=== PATIENT | female | born 2000 | race Caucasian/White ===

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

== ENCOUNTER 2019-07-09 11:49 | Emergency (ER) | payer OTHER, SELFPAY ==
--- OUTSIDE RECORDS SUMMARY | 2019-07-09 12:44 | XMS REPORT | Continuity of Care Document ---
:2000 Author Organization [facility] t Address [address] [place] [address] Care Team Providers Name Role Phone Sierra Tan Attending Clinician ZARA Attending Clinician Unavailable Problems Condition Condition Condition Status Onset Resolution Last Treating Co mments Source Name Details Category Date Date Treatment Clinician Date History of History of Problem Resolve [facility] asthma asthma HL7.CCDAR2 d [facility] of [place] Phys[facility] ans Breakthrou Breakthrou Problem Active U nivers gh gh HL7.CCDAR2 ity of bleeding bleeding [place] on on Physic i control control ans pills pills Allergies, Adverse Reactions, Alerts This patient has no known allergies or adverse reactions. Social History Smoking Status Start Date Stop Date Source Never smoker [facility] Physicians Medications Ordered Filled Start Stop Current Ordering Indication Dosage Frequency Signature Comments Components Source Medication Medication Date Date Medication? Clinician (SIG) Name Name Desogestrel Desogestrel Yes HOPE QD TAKE 1 [facility] -Ethinyl -Ethinyl 8-08 ZARA Clemons TABLET ity of Estradiol Estradiol 00:00: DAILY [place] 0.15-30 0.15-30 00 DIRECTED. Phys ici MG-MCG Oral MG-MCG Oral a ns Tablet Tablet Vital Signs Vital Name Observation Time Observation Value Comments Source BP Systolic 2017-09-13 113 mm[Hg] Location: [facility] 13:37:00 Position: [place] Physician s Sitting BP Diastolic 2017-09-13 68 mm[Hg] Location: [facility] 13:37:00 Position: [place] Physician s Sitting Height 2017-09-13 67 [in_us] [facility] 13:37:00 [place] Physician s Weight 2017-09-13 184 [lb_av] [facility] 13:37:00 [place] Physician s Body Mass Index 2017-09-13 28.82 kg/m2 University o f Calculated 13:37:00 [place] Physician s Heart Rate 2017-09-13 90 /min [facility] 13:37:00 [place] Physician s Procedures This patient has no known procedures. 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 [id number] REGIONAL [id number] MATERNAL [id number] & CHILD 107 [facility] 2018-10-23 2018-10-23 Routine FLORIAN Solis [id number] 11:04:47 11:27:08 Roshunda R GLOVE MAKER [id number] Visit REGIONAL [id number] MATERNAL [id number] & CHILD 107 [facility] 2018-10-09 2018-10-09 Routine FLORIAN Solis [id number] 10:02:18 10:42:22 Roshunda R GLOVE MAKER [id number] Visit REGIONAL [id number] MATERNAL [id number] & CHILD 107 [facility] 2018-09-24 2018-09-24 Routine FLORIAN Solis [id number] 09:30:30 14:04:21 Roshunda R GLOVE MAKER [id number] Visit REGIONAL [id number] MATERNAL [id number] & CHILD 107 [facility] 2017-09-13 2017-09-13 REGAN [facility] [id number] [facility] 14:00:00 14:00:00 t; HOPE ZUÑIGA, [place] ity of Deonte ARNETT M.D. Physici ans Results This patient has no known results.
[2019-07-09 13:05] LABS: Absolute Lymphocytes (CBC) 2.1 K/uL (0.7-4.9); Basophils % 0.4 % (0-1.3); Hematocrit 38.9 % (36.0-45.0); Lymphocytes % 36.1 % (15.3-44.8); MPV 8.5 fL (7.6-11.3); RBC Red Blood Cell Count 5.25 M/uL (3.86-4.86)
[2019-07-09 13:26] LABS: BUN Blood Urea Nitrogen 10 mg/dL (7-18); Bicarbonate 26 mmol/L (21-32); Glucose Level 108 mg/dL (74-106); Sodium Level 139 mmol/L (136-145)
--- NOTE | 2019-07-09 14:31 | EDPHYS ---
Physician Documentation [facility] Name: Nicolasa Mas Age: 19 yrs Sex: Female : 2000 Arrival Date: 07/09/2019 Time: 11:55 Bed 26 Private MD: ED Physician Jj Fernandez HPI: 07/08 12:27 This 19 yrs old Female presents to ER via Ambulatory with complaints of mh7 Vaginal Bleeding.. 12:27 The patient presents with vaginal bleeding that is heavy. Onset: The symptoms/episode mh7 began/occurred 3 day(s) ago. Modifying factors: The symptoms are alleviated by nothing, the symptoms are aggravated by nothing. Associated signs and symptoms: Pertinent negatives: constipation, cramping, diarrhea, dyspareunia, dysuria, fever, hematuria, nausea, urinary frequency, vaginal discharge, vomiting. Severity of symptoms: At their worst the symptoms were moderate, last night, in the emergency department the symptoms have improved, moderately. 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 - Social history:: Smoking status: Patient reports the use of cigarette tobacco products, smokes one pack cigarettes per day. ROS: 12:27 Constitutional: Negative for fever, chills, and weight loss, Eyes: Negative for injury, mh7 pain, redness, and discharge, ENT: Negative for injury, pain, and discharge, Neck: Negative for injury, pain, and swelling, Cardiovascular: Negative for chest pain, palpitations, and edema, Respiratory: Negative for shortness of breath, cough, wheezing, and pleuritic chest pain, Abdomen/GI: Negative for abdominal pain, nausea, vomiting, diarrhea, and constipation, Back: Negative for injury and pain, MS/Extremity: Negative for injury and deformity, Skin: Negative for injury, rash, and discoloration, Neuro: Negative for headache, weakness, numbness, tingling, and seizure, Psych: Negative for depression, anxiety, suicide ideation, homicidal ideation, and hallucinations, Allergy/Immunology: Negative for hives, rash, and allergies, Endocrine: Negative for neck swelling, polydipsia, polyuria, polyphagia, and marked weight changes, Hematologic/Lymphatic: Negative for swollen nodes, abnormal bleeding, and unusual bruising. Exam: 12:27 Constitutional: This is a well developed, well nourished patient who is awake, alert, mh7 and in no acute distress. Head/Face: Normocephalic, atraumatic. Eyes: Pupils equal round and reactive to light, extra-ocular motions intact. Lids and lashes normal. Conjunctiva and sclera are non-icteric and not injected. Cornea within normal limits. Periorbital areas with no swelling, redness, or edema. Neck: Trachea midline, no thyromegaly or masses palpated, and no cervical lymphadenopathy. Supple, full range of motion without nuchal rigidity, or vertebral point tenderness. No Meningismus. Chest/axilla: Normal chest wall appearance and motion. Nontender with no deformity. No lesions are appreciated. Cardiovascular: Regular rate and rhythm with a normal S1 and S2. No gallops, murmurs, or rubs. Normal PMI, no JVD. No pulse deficits. Respiratory: Lungs have equal breath sounds bilaterally, clear to auscultation and percussion. No rales, rhonchi or wheezes noted. No increased work of breathing, no retractions or nasal flaring. Abdomen/GI: Soft, non-tender, with normal bowel sounds. No distension or tympany. No guarding or rebound. No evidence of tenderness throughout. Back: No spinal tenderness. No costovertebral tenderness. Full range of motion. Skin: Warm, dry with normal turgor. Normal color with no rashes, no lesions, and no evidence of cellulitis. MS/ Extremity: Pulses equal, no cyanosis. Neurovascular intact. Full, normal range of motion. Neuro: Awake and alert, GCS 15, oriented to person, place, time, and situation. Cranial nerves II-XII grossly intact. Motor strength 5/5 in all extremities. Sensory grossly intact. Cerebellar exam normal. Normal gait. Psych: Awake, alert, with orientation to person, place and time. Behavior, mood, and affect are within normal limits. 19:51 : CVA tenderness, is absent, Pelvic Exam: The exam is refused by the [facility] patient/guardian. The risks and consequences are understood by the patient, Bladder: is normal. Vital Signs: 12:07 BP 133 / 85; Pulse 98; Resp 16; Temp 98.3; Pulse Ox 100% on R/A; Weight 84.37 kg; ph Height 5 ft. 7 in. (170.18 cm); 14:40 BP 112 / 67; Pulse 80; Resp 17; Pulse Ox 99% ; Pain 0/10; ll1 12:07 Body Mass Index 29.13 (84.37 kg, 170.18 cm) ph MDM: 12:25 Patient medically screened. [facility] 14:29 Differential diagnosis: dysmenorrhea, ectopic , menometrorrhagia, menorrhea, [facility] postcoital bleeding, ruptured ectopic , urinary tract infection. Data reviewed: vital signs, nurses notes, lab test result(s), CBC, electrolytes, urinalysis. Counseling: I had a detailed discussion with the patient and/or guardian regarding: the historical points, exam findings, and any diagnostic results supporting the discharge/admit diagnosis, lab results. 07/08 12:27 Order name: Abo/rh Typing; Complete Time: 13:33 [facility] 07/08 12:27 Order name: Basic Metabolic Panel; Complete Time: 13:33 [facility] 07/08 12:27 Order name: CBC with Diff; Complete Time: 13:33 [facility] 07/08 12:27 Order name: IV Saline Lock; Complete Time: 12:54 [facility] 07/08 13:26 Order name: Urine Dipstick--Ancillary (enter results) 07/08 13:26 Order name: Urine --Ancillary (enter results) 07/08 12:27 Order name: Labs collected and sent; Complete Time: 12:54 [facility] 07/08 12:27 Order name: NPO; Complete Time: 12:54 [facility] 07/08 12:27 Order name: Urine Dipstick-Ancillary (obtain specimen); Complete Time: 13:13 [facility] 07/08 12:27 Order name: Urine Test (obtain specimen); Complete Time: 13:13 [facility] Administered Medications: No medications were administered Disposition: 07/09/19 14:31 Discharged to Home. Impression: Vaginal Bleeding. - Condition is Stable. - Discharge Instructions: Metrorrhagia, [id number]. - Medication Reconciliation Form, Thank You Letter, Antibiotic Education, Prescription Opioid Use form. - Follow up: Eliu Gray MD; When: 1 - 2 days; Reason: Worsening of condition, Recheck today's complaints. - Problem is new. - Symptoms have improved. Signatures: Dispatcher [employer] Svitlana Ivy, RN RN Luis E Cruz RN RN ll1 Jj Fernandez MD MD mh7 Corrections: (The following items were deleted from the chart) 14:42 14:31 07/09/2019 14:31 Discharged to Home. Impression: Vaginal Bleeding. Condition is ll1 Stable. Forms are Medication Reconciliation Form, Thank You Letter, Antibiotic Education, Prescription Opioid Use. Follow up: Eliu Gray; When: 1 - 2 days; Reason: Worsening of condition, Recheck today's complaints. Problem is new. Symptoms have improved. mh7
--- NOTE | 2019-07-09 14:31 | ER ---
Nurse's Notes [facility] Name: Nicolasa Mas Age: 19 yrs Sex: Female : 2000 Arrival Date: 07/09/2019 Time: 11:55 Bed 26 Private MD: Diagnosis: Vaginal Bleeding Presentation: 07/08 12:07 Chief complaint: Patient states: LMP was 2 weeks ago, 4 days ago started having light ph spotting, vaginal bleeding became heavy on Monday, also c/o cramping, denies dizziness, weakness, or SOB, states that periods are usually regular. Coronavirus screen: Patient denies a cough. Patient denies shortness of breath or difficulty breathing. Patient denies measured and/or subjective temperature greater than 100.4F prior to today's visit. Patient denies travel on a cruise ship or to a country the [facility] currently lists as an affected area. Patient denies contact with known and/or suspected case of COVID-19. Ebola Screen: No symptoms or risks identified at this time. Initial Sepsis Screen: Does the patient meet any 2 criteria? No. Patient's initial sepsis screen is negative. Does the patient have a suspected source of infection? No. Patient's initial sepsis screen is negative. Risk Assessment: Do you want to hurt yourself or someone else? Patient reports no desire to harm self or others. Onset of symptoms was July 09, 2019. 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 - Social history:: Smoking status: Patient reports the use of cigarette tobacco products, smokes one pack cigarettes per day. Screenin:56 Abuse screen: Denies threats or abuse. Nutritional screening: No deficits noted. ll1 Tuberculosis screening: No symptoms or risk factors identified. Fall Risk IV access (20 points). Total Mauricio Fall Scale indicates No Risk (0-24 pts). Assessment: 12:35 General: Appears in no apparent distress. Behavior is calm, cooperative, appropriate ll1 for age. Pain: Complains of pain in pelvic Quality of pain is described as crampy. Neuro: No deficits noted. Cardiovascular: No deficits noted. Respiratory: No deficits noted. : Reports vaginal bleeding that is moderate flow, irregular. 13:35 Reassessment: Patient appears in no apparent distress at this time. No changes from ll1 previously documented assessment. Patient and/or family updated on plan of care and expected duration. Pain level reassessed. Patient is alert, oriented x 3, equal unlabored respirations, skin warm/dry/pink. Vital Signs: 12:07 BP 133 / 85; Pulse 98; Resp 16; Temp 98.3; Pulse Ox 100% on R/A; Weight 84.37 kg; ph Height 5 ft. 7 in. (170.18 cm); 14:40 BP 112 / 67; Pulse 80; Resp 17; Pulse Ox 99% ; Pain 0/10; ll1 12:07 Body Mass Index 29.13 (84.37 kg, 170.18 cm) ph ED Course: 11:55 Patient arrived in ED. fj1 12:04 Luis E Cruz, DANY is Primary Nurse. ll1 12:10 Triage completed. ph 12:10 Arm band placed on Patient placed in an exam room. ph 12:18 Jj Fernandez MD is Attending Physician. 7 12:40 Initial lab(s) drawn, by nh, sent to lab. T\T\S collected, blood band applied to patient. jp3 Inserted saline lock: 20 gauge in right antecubital area, using aseptic technique. Blood collected. Patient maintains SpO2 saturation greater than 95% on room air. 12:53 Bed in low position. Call light in reach. Side rails up X 1. Verbal reassurance given. jp3 Pulse ox on. NIBP on. 12:54 Diet: Patient is NPO. jp3 14:30 Eliu Gray MD is Referral Physician. mh7 14:40 No provider procedures requiring assistance completed. IV discontinued, intact, ll1 bleeding controlled, No redness/swelling at site. Pressure dressing applied. Administered Medications: No medications were administered Outcome: 14:31 Discharge ordered by . mh7 14:42 Patient left the ED. ll1 14:42 Discharged to home ambulatory. ll1 14:42 Condition: stable 14:42 Discharge instructions given to patient, Instructed on discharge instructions, follow up and referral plans. Demonstrated understanding of instructions, follow-up care. Signatures: Svitlana Palmer RN RN ph Vinnie Yung jp3 Jorge Sykes fj1 Luis E Cruz RN RN ll1 Jj Fernandez MD MD 7
[2019-07-09 14:47] VITALS: BP 133/85; TEMP 98.3; O2SAT 100
[2019-07-09 20:47] LABS: Urine Blood 1+ (NEG); Urine Glucose NEGATIVE (NEG); Urine Protein NEGATIVE (NEG); Urine Specific Gravity >1.030 (1.005-1.030)
== END 2019-07-09 14:42 | disposition home or self-care (01) ==
LOC: ER 11:49
DX: N93.9 Abnormal uterine and vaginal bleeding, unspecified (principal); F17.210 Nicotine dependence, cigarettes, uncomplicated
CPT/HCPCS: 36415; 80048; 81003; 81025; 85025; 86900; 86901; 99284

== ENCOUNTER 2019-07-27 19:19 | Emergency (ER) | payer SELFPAY ==
--- OUTSIDE RECORDS SUMMARY | 2019-07-27 19:21 | XMS REPORT | Continuity of Care Document ---
:2000 Author Organization [facility] t Address [address] [place] [address] Care Team Providers Name Role Phone Sierra [...] Start Date Stop Date Source Never smoker [facility] Physicians Medications Ordered Filled Start Stop Current Ordering Indication Dosage Frequency Signature Comments Components Source Medication Medication Date Date Medication? Clinician (SIG) Name Name Desogestrel Desogestrel Yes HOPE QD TAKE 1 [facility] -Ethinyl -Ethinyl 08 ZARA Clemons TABLET ity of Estradiol Estradiol 00:00: DAILY [place] 0.15-30 0.15-30 00 DIRECTED. Phys ici MG-MCG Oral MG-MCG Oral a ns Tablet Tablet Vital Signs Vital Name Observation Time Observation Value Comments Source BP Systolic 2017-09-13 113 mm[Hg] Location: LUE; [facility] of 13:37:00 Position: [place] Physician s Sitting BP Diastolic 2017-09-13 68 mm[Hg] Location: [facility] 13:37:00 Position: [place] Physician s Sitting Height 2017-09-13 67 [in_us] University 13:37:00 [place] Physician s Weight 2017-09-13 184 [lb_av] University 13:37:00 [place] Physician s Body Mass Index 2017-09-13 28.82 kg/m2 University o f Calculated 13:37:00 [place] Physician s Heart Rate 2017-09-13 90 /min [facility] 13:37:00 [place] Physician s Procedures This patient has no known procedures. Encounters Start End Encounter Admission Attending Care Care Encounter Source Date/Time Date/Time Type Type Clinicians Facility Department ID 2019-04-04 2019-04-04 Telephone [facility] [id number] 00:00:00 00:00:00 Roshunda R MIRROR PAINTER [id number] REGIONAL [id number] MATERNAL [id number] & CHILD 107 [facility] 2018-10-23 2018-10-23 Routine [facility] [id number] 11:04:47 11:27:08 Roshunda R MIRROR PAINTER [id number] Visit REGIONAL [id number] MATERNAL [id number] & CHILD 107 [facility] 2018-10-09 2018-10-09 Routine [facility] [id number] 10:02:18 10:42:22 Roshunda R MIRROR PAINTER [id number] Visit REGIONAL [id number] MATERNAL [id number] & CHILD 107 [facility] 2018-09-24 2018-09-24 Routine [facility] [id number] 09:30:30 14:04:21 Roshunda R MIRROR PAINTER [id number] Visit REGIONAL [id number] MATERNAL [id number] & CHILD 107 [facility] 2017-09-13 2017-09-13 AppointREGAN Bauer's [id number] Univers 14:00:00 14:00:00 t; HOPE ZUÑIGA, Elizabeth ity of Deonte ARNETT M.D. Physici ans Results This patient has no known results.
[2019-07-27] MEDS ORDERED: HYDROCODONE/APAP 5/325 MG TAB ONE ×2 (20:37→23:19)
[2019-07-27] MEDS ORDERED: LIDOCAINE JELLY 2%- 5 ML TUBE ONE (21:37)
[2019-07-27] MEDS ORDERED: LIDOCAINE 1% MPF 5 ML VIAL ONE (22:06)
[2019-07-27] MEDS ORDERED: BUPIVACAINE 0.5% PF 10 ML VIAL ONE (22:06)
--- NOTE | 2019-07-27 23:10 | ER ---
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 Coronavirus screen: Proceed with normal triage. Patient denies a cough. Patient denies shortness of breath or difficulty breathing. Patient denies measured and/or subjective temperature greater than 100.4F prior to today's visit. Patient denies travel on a cruise ship or to a country the [facility] currently lists as an affected area. Patient denies contact with known and/or suspected case of COVID-19. Ebola Screen: Patient denies travel to an Ebola-affected area in the 21 days before illness onset. Initial Sepsis Screen: Does the patient meet any 2 criteria? HR > 90 bpm. No. Patient's initial sepsis screen is negative. Onset of symptoms was July 27, 2019. 19:30 Method Of Arrival: Ambulatory ll1 19:30 Acuity: IAN 4 ll1 20:00 Initial Sepsis Screen: Does the patient have a suspected source of infection? No. Patient's initial sepsis screen is negative. Risk Assessment: Do you want to hurt yourself or someone else? Patient reports no desire to harm self or others. Triage Assessment: 20:00 Injury Description: Deformity sustained to left index fingernail. 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 - Social history:: Smoking status: Patient denies any tobacco usage or history of. Smoking status: Patient reports the use of cigarette tobacco products, smokes one pack cigarettes per day. Patient uses alcohol, only on a social basis. Patient/guardian denies using street drugs. Screenin:00 Abuse screen: Denies threats or abuse. Denies injuries from another. Nutritional screening: No deficits noted. Tuberculosis screening: No symptoms or risk factors identified. Fall Risk None identified. Assessment: 19:45 General: Appears in no apparent distress. Behavior is calm, cooperative, appropriate wh for age. Pain: Complains of pain in left index fingernail. Neuro: Level of Consciousness is awake, alert, obeys commands, Oriented to person, place, time, situation, Appropriate for age. Cardiovascular: Capillary refill < 3 seconds. Respiratory: Airway is patent Respiratory effort is even, unlabored, Respiratory pattern is regular, symmetrical. GI: Abdomen is flat, non-distended. : No signs and/or symptoms were reported regarding the genitourinary system. EENT: No signs and/or symptoms were reported regarding the EENT system. Derm: Skin is intact, is healthy with good turgor, Skin is pink, warm \T\ dry. normal. Musculoskeletal: Circulation, motion, and sensation intact. 20:30 Reassessment: Acetone was provided by family, nail was placed on gauze soaked with acetone. 20:40 Reassessment: Patient appears in no apparent distress at this time. No changes from previously documented assessment. Patient and/or family updated on plan of care and expected duration. Pain level reassessed. Patient is alert, oriented x 3, equal unlabored respirations, skin warm/dry/pink. 21:30 Reassessment: Patient appears in no apparent distress at this time. Patient and/or vc family updated on plan of care and expected duration. Pain level reassessed. Patient is alert, oriented x 3, equal unlabored respirations, skin warm/dry/pink. 22:43 Reassessment: Patient appears in no apparent distress at this time. Patient and/or vc family updated on plan of care and expected duration. Pain level reassessed. Patient is alert, oriented x 3, equal unlabored respirations, skin warm/dry/pink. Patient states symptoms have improved. Vital Signs: 19:30 BP 135 / 88; Pulse 93; Resp 16; Temp 97.7; Pulse Ox 100% ; Pain 3/10; ll1 20:45 BP 115 / 81; Pulse 86; Resp 18; Pulse Ox 99% on R/A; ED Course: 19:22 Patient arrived in ED. es 19:26 Arm band placed on. sg 19:32 Triage completed. ll1 19:33 Mehrdad Bartlett NP is PHCP. pm1 19:33 Kuldip Ortega MD is Attending Physician. pm1 19:33 Arm band placed on Patient placed in an exam room, on a stretcher. ll1 20:00 Patient has correct armband on for positive identification. Bed in low position. Call light in reach. Side rails up X 1. Pulse ox on. NIBP on. 20:11 Noah Maxwell is Primary Nurse. 23:25 suturing 2nd digit left hand fingernail back on. Patient did not have IV access during vc this emergency room visit. Administered Medications: 19:50 Drug: Lidocaine Gel 2 % 1 ea Volume: 15 ml; Route: Mucous Membrane; vc 20:31 Drug: [place] 5 mg-325 mg 1 tabs Route: PO; 22:44 Follow up: Response: No adverse reaction vc 20:32 Not Given (Physician Discretion; Pt just had DTAP): Tetanus-Diphtheria Toxoid Adult 0.5 wh ml IM once 22:20 Drug: Lidocaine (1 %) 5 ml Volume: 5 ml; Route: Infiltration; vc 22:20 Drug: Marcaine (0.5 %) 5 ml Volume: 10 ml; Route: Infiltration; vc 23:25 Drug: [place] 5 mg-325 mg 1 tabs Route: PO; vc 23:25 Follow up: Response: No adverse reaction; Medication administered at discharge. vc Outcome: 23:09 Discharge ordered by . pm1 23:26 Discharged to home ambulatory, with friend. vc 23:26 Condition: good 23:26 Discharge instructions given to patient, Instructed on discharge instructions, follow up and referral plans. Demonstrated understanding of instructions, follow-up care, Prescriptions given X 2. 23:27 Patient left the ED. vc Signatures: Hiren Davis RN RN Brittany Villar Patrick, NP BOX PACKER pm1 Noah Maxwell Danielle Restrepo RN RN Luis E Cruz RN RN [facility]
--- NOTE | 2019-07-27 23:10 | EDPHYS ---
Physician Documentation [facility] Name: Nicolasa Mas Age: 19 yrs Sex: Female : 2000 Arrival Date: 07/27/2019 Time: 19:22 Bed 15 Private MD: ED Physician Kuldip Ortega HPI: 07/26 20:23 This 19 yrs old Female presents to ER via Ambulatory with complaints of pm1 Finger Injury. 20:23 The patient or guardian reports pain. The complaints affect the left index fingernail. pm1 Context: The problem was sustained at home, resulted from bent nail back due to fake nail. Onset: The symptoms/episode began/occurred just prior to arrival. Modifying factors: The symptoms are alleviated by nothing, the symptoms are aggravated by. Associated signs and symptoms: Pertinent negatives: cyanosis distally, decreased sensation distally, numbness distally, tingling distally. Severity of symptoms: in the emergency department the symptoms are unchanged. The patient has not experienced similar symptoms in the past. 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 - Social history:: Smoking status: Patient denies any tobacco usage or history of. Smoking status: Patient reports the use of cigarette tobacco products, smokes one pack cigarettes per day. Patient uses alcohol, only on a social basis. Patient/guardian denies using street drugs. ROS: 20:59 Constitutional: Negative for fever, chills, and weight loss. pm1 20:59 Neuro: Negative for headache, weakness, numbness, tingling, and seizure. 20:59 MS/extremity: Positive for laceration, pain, of the left index fingernail, Negative for decreased range of motion, deformity. 20:59 Skin: Positive for laceration(s), of the left index fingernail, Negative for avulsion. 20:59 All other systems are negative. Exam: 20:59 Constitutional: This is a well developed, well nourished patient who is awake, alert, pm1 and in no acute distress. Head/Face: Normocephalic, atraumatic. 20:59 Cardiovascular: Exam negative for acute changes, Rate: normal, Rhythm: regular, Pulses: no pulse deficits are appreciated. 20:59 Respiratory: Exam negative for acute changes, respiratory distress, shortness of breath. 20:59 Musculoskeletal/extremity: Extremities: grossly normal except: noted in the left index fingernail: nailbed laceration. Nail root intact in nail groove, the left hand Sensation intact. 20:59 Skin: injury, laceration(s), the wound is approximately 1 cm(s), of the left index fingernail, that can be described as clean, no foreign body, nail bed laceration. Hard artificial nail attached to acrylic nail attached to nail present. Vital Signs: 19:30 BP 135 / 88; Pulse 93; Resp 16; Temp 97.7; Pulse Ox 100% ; Pain 3/10; ll1 20:45 BP 115 / 81; Pulse 86; Resp 18; Pulse Ox 99% on R/A; wh Laceration: 23:03 Wound Repair of 1cm ( 0.4in ) subcutaneous laceration to left index fingernail. nail pm1 bed laceration. Distal neuro/vascular/tendon intact. Anesthesia: Digital block administered with 2 mls of 1% lidocaine. Wound prep: Extensive cleansing with hibiclenz by me, Wound irrigation with saline by me, Wound explored extensively, Copious irrigation. Skin closed with 1 4-0 Prolene using figure 8 suture applied to keep root of nail in the nail fold. Dressed with Neosporin, finger splint. Patient tolerated well. MDM: 19:33 Patient medically screened. pm1 20:46 ED course: No acetone present in the ER to remove the nail. Pending friend drove home pm1 to pick it up. Informed patient that the fake nail needs to be removed to evaluate if any treatment needs to be done on the nail or nailbed. 23:08 Data reviewed: vital signs. Data interpreted: Pulse oximetry: on room air is 99 %. pm1 Interpretation: normal. Counseling: I had a detailed discussion with the patient and/or guardian regarding: the historical points, exam findings, and any diagnostic results supporting the discharge/admit diagnosis, the need for outpatient follow up, to return to the emergency department if symptoms worsen or persist or if there are any questions or concerns that arise at home. Administered Medications: 19:50 Drug: Lidocaine Gel 2 % 1 ea Volume: 15 ml; Route: Mucous Membrane; vc 20:31 Drug: [place] 5 mg-325 mg 1 tabs Route: PO; wh 22:44 Follow up: Response: No adverse reaction vc 20:32 Not Given (Physician Discretion; Pt just had DTAP): Tetanus-Diphtheria Toxoid Adult 0.5 wh ml IM once 22:20 Drug: Lidocaine (1 %) 5 ml Volume: 5 ml; Route: Infiltration; vc 22:20 Drug: Marcaine (0.5 %) 5 ml Volume: 10 ml; Route: Infiltration; vc 23:25 Drug: [place] 5 mg-325 mg 1 tabs Route: PO; vc 23:25 Follow up: Response: No adverse reaction; Medication administered at discharge. vc Disposition: 07/27 04:23 Co-signature as Attending Physician, Kuldip Ortega MD I agree with the assessment and lien plan of care. Disposition: 07/27/19 23:09 Discharged to Home. Impression: Laceration without foreign body of left index finger with damage to nail - nail bed laceration. - Condition is Stable. - Discharge Instructions: Laceration Care, Adult. - Prescriptions for Tylenol- Codeine #3 300-30 mg Oral Tablet - take 2 tablets by ORAL route every 6 hours As needed; 20 tablet. Keflex 500 mg Oral Capsule - take 1 capsule by ORAL route every 8 hours for 10 days; 30 capsule. - Medication Reconciliation Form, Thank You Letter, Antibiotic Education, Prescription Opioid Use, Work release form form. - Follow up: Emergency Department; When: As needed; Reason: Worsening of condition. Follow up: Private Physician; When: 10 - 14 days; Reason: Recheck today's complaints, Continuance of care, Staple/Suture removal, Re-evaluation by your physician. - Problem is new. - Symptoms have improved. Signatures: Hiren Davis RN RN sg Anderson, Corey, MD MD cha Marinas, Patrick, MADHAV DIRECTOR MONEY pm1 Noah Maxwell Vanessa, RN RN vc Lewis, Lynsay, RN RN ll1 Corrections: (The following items were deleted from the chart) 07/26 23:27 23:09 07/27/2019 23:09 Discharged to Home. Impression: Laceration without foreign body vc of left index finger with damage to nail - nail bed laceration. Condition is Stable. Forms are Work release form, Medication Reconciliation Form, Thank You Letter, Antibiotic Education, Prescription Opioid Use. Follow up: Emergency Department; When: As needed; Reason: Worsening of condition. Follow up: Private Physician; When: 10 - 14 days; Reason: Recheck today's complaints, Continuance of care, Staple/Suture removal, Re-evaluation by your physician. Problem is new. Symptoms have improved. pm1
[2019-07-27 23:40] VITALS: BP 115/81; O2SAT 99
[2019-07-27 23:42] VITALS: TEMP 97.7
== END 2019-07-27 23:27 | disposition home or self-care (01) ==
LOC: ER 19:19
PROC: 0JQK0ZZ Repair Left Hand Subcutaneous Tissue and Fascia, Open Approach (ICD-10-PCS; principal; 2019-07-27)
DX: S61.311A Laceration without foreign body of left index finger with damage to nail, initial encounter (principal); W45.8XXA Other foreign body or object entering through skin, initial encounter; Y93.89 Activity, other specified; Y92.009 Unspecified place in unspecified non-institutional (private) residence as the place of occurrence of the external cause; F17.210 Nicotine dependence, cigarettes, uncomplicated
CPT/HCPCS: 99283

== ENCOUNTER 2023-07-21 01:13 | Emergency (ER) | payer OTHER, SELFPAY ==
--- OUTSIDE RECORDS SUMMARY | 2023-07-21 01:18 | XMS REPORT | Continuity of Care Document ---
Author Name Unknown Address [address] [facility]. [address] [place] [address] [facility] Address [address] [facility] [address] [place] [address] Care Team Providers Care Derrick Boat Runner Name Role Phone Cielo Loza Primary Care Physicia n JEN JIMÉNEZ Attending Clinician Unavaila OFELIA Grimes Attending Clinician Unavailable OFELIA HOFFMAN Attending Clinician Unavailable Provider, Chilango Temp Attending Clinician Veronica vailable Cielo Loza Attending Clinician + CIELO MCDONALD Attending Clinician Unavail able Jen Jiménez CNM Attending Clinician [phone] QUINCY DAIGLE Attending Clinician Unavailable QUINCY DAIGLE Attending Clinician Unavailable Ultrasound, [facility] Attending Clinician UnavailQuincy Bowers MD Attending Clinician [phone] Doctor Unassigned, [place] Attending Clinician U joailwillie Nurse, [facility] Obgyn Attending Clini alison Unavailable Gabi TABLE WORKER, Arlene Boyd Attending Clinician [phone] ARLENE ASHLEY Attending Clinician Unavailabl elias Zhou TABLE WORKER, Balbir Esquivel Attending Clinician [phone] BALBIR ZHOU Attending Clinician Unavailab alec Mcdonald MD, Freeman Mendoza Attending Clinician + [phone] Yony Song MD Attending Clinician [phone] Camden Pollock Attending Clinician [phone] Hamilton Dalia MCFARLAND Attending Clinician LATASHA CONTRERAS Attending Clinician Unavailable CHALINO DENTON Attending Clinician Unavail able HOPE ZUÑIGA M.D. Attending Clinician Unavail willie Mcdonald MD, Freeman Mendoza Admitting Clinician + [phone] Payers Payer Name Policy Type Policy Number Effective Date Expirati on Date Source [employer] MEDICAID [id number] 2020 00:00:00 [place] [id number] 2020 00:00:00 Problems Condition Name Condition Details Condition Category Status Onset Date Resolution Date Last Treatment Date Treating Clinician Comments Source Asthma affecting in second trimester Asthma affecting in second trimester Disease Active 07-11 00:00: 00 [facility] Vapes nicotine containing substance Vapes nicotine containing substance Disease Active 04-12 00:00: 00 [facility] History of seizures as a child History of seizures as a child Disease Active 04-12 00:00: 00 Overview: Formattin g of this note might be different from the original. Febrile as child [facility] Other general counseling and advice for contracept duke management Other general counseling and advice for contracept duke management Disease Active 2023-0 1-31 00:00: 00 [facility] Obesity (BMI 30-39.9) Obesity (BMI 30-39.9) Disease Active 1-31 00:00: 00 [facility] Obesity affecting Obesity affecting Disease Active 1-31 00:00: 00 [facility] depression depression Disease Active 2020-02 0-11 00:00: 00 [facility] Anemia, Anemia, Disease Active 8-31 00:00: 00 [facility] History of asthma History of asthma Disease Active 530 00:00: 00 [facility] History of depression History of depression Disease Active 07-05 00:00: 00 [facility] Maternal varicella, non-immune Maternal varicella, non-immune Disease Active 530 00:00: 00 [facility] related nausea, antepartum related nausea, antepartum Disease Active 07-05 00:00: 00 [facility] Supervisio n of high risk , antepartum Supervisio n of high risk , antepartum Disease Active 5-28 00:00: 00 [facility] Asperger syndrome Asperger syndrome Disease Active 3-13 00:00: 00 [facility] Breakthrou gh bleeding on control pills Breakthrou gh bleeding on control pills Problem [id number] Active [facility] Allergies, Adverse Reactions, Alerts Allergy Name Allergy Type Status Severity Reaction(s) Onset Date Inactive Date Treating Clinician Comments Source NO KNOWN ALLERGIE S Drug Class Active [facility] Social History Social Habit Start Date Stop Date Quantity Comments Source ASSERTION 2023-03-24 00:00:00 [facility] Cigarettes smoked current (pack per day) - Reported 2023-07-12 00:00:00 2023-07-12 00:00:00 [facility] Cigarette pack-years 2023-07-12 00:00:00 2023-07-12 00:00:00 [facility] Tobacco use and exposure 2023-07-12 00:00:00 2023-07-12 00:00:00 Smokeless tobacco non-user [facility] Alcoholic beverage intake 2023-07-12 00:00:00 2023-07-12 00:00:00 Current non-drinker of alcohol (finding) [facility] Alcohol intake 2023-06-07 00:00:00 2023-06-07 00:00:00 Current non-drinker of alcohol (finding) [facility] History of Social function 2023-04-12 00:00:00 2023-04-12 00:00:00 [facility] Exposure to SARS-CoV-2 (event) 2022-02-26 00:00:00 2022-03-08 13:13:00 Not sure [facility] Tobacco Comment 2022-03-08 00:00:00 2022-03-08 00:00:00 patient vapes [facility] History of tobacco use 2018-04-08 00:00:00 Cigarette Smoker [facility] Sex assigned at 2000 00:00:00 2000 00:00:00 [facility] Smoking Status Start Date Stop Date Source Never smoker [facility] Ex-smoker 2023-07-12 00:00:00 2023-07-12 00:00:00 [facility] Smokes tobacco daily 2022-03-08 00:00:00 [facility] Medications Ordered Medication Name Filled Medication Name Start Date Stop Date Current Medication? Ordering Clinician Indication Dosage Frequency Signature (SIG) Comments Components Source AMOXICILLIN ORAL 03-08 13:41: 15 03-08 00:00 :00 No Take by mouth 3 (three) times daily. [facility] amoxicillin 500 mg capsule 124 00:00: 00 04-11 00:00 :00 No TAKE 1 CAPSULE BY MOUTH EVERY 8 HOURS FOR 10 DAYS UNTIL ALL TAKEN [facility] SERTraline (ZOLOFT) 50 mg tablet 2020-02 0-11 00:00: 00 04-11 00:00 :00 No [id number] 50mg Take 1 tablet by mouth daily. [facility] norethindro ne 0.35 mg tablet 2020-02 0-11 00:00: 00 04-11 00:00 :00 No [id number] 1{tbl} Take 1 tablet by mouth daily. [facility] you363-nawf fum-folic () 27 mg iron- 1 mg Tab 10-06 00:00: 00 Yes [id number] 1{tbl} Take 1 tablet by mouth daily. [facility] dig078-uqfm fum-folic () 27 mg iron- 1 mg Tab 10-06 00:00: 00 Yes [id number] 1{tbl} Take 1 tablet by mouth daily. [facility] docusate calcium 240 mg capsule 10-06 00:00: 00 04-11 00:00 :00 No [id number] 240mg Take 1 capsule by mouth once daily as needed for Constipati on. [facility] ferrous sulfate 325 mg (65 mg iron) tablet 10-06 00:00: 00 04-11 00:00 :00 No [id number] 325mg Take 1 tablet by mouth 2 (two) times daily. [facility] ibuprofen 600 mg tablet 10-06 00:00: 00 04-11 00:00 :00 No [id number] 600mg Take 1 tablet by mouth every 6 (six) hours as needed (Pain). Take with food or milk. [facility] Desogestrel -Ethinyl Estradiol 0.15-30 MG-MCG Oral Tablet Desogestrel -Ethinyl Estradiol 0.15-30 MG-MCG Oral Tablet 09-13 00:00: 00 Yes HOPE ZUÑIGA M.D. QD TAKE 1 TABLET DAILY DIRECTED. [facility] Immun[facility] Ordered Immunization Name Filled Immunization Name Date Status Comments Source Influenza Virus Vaccine Quad IM, Preserv and ABX Free 6 MO-64 YRS 2022-03-08 00:00:00 Completed [facility] Influenza Virus Vaccine Quad IM, Preserv and ABX Free 6 MO-64 YRS 2022-03-08 00:00:00 Completed [facility] Influenza Virus Vaccine Quad IM, Preserv and ABX Free 6 MO-64 YRS 2022-03-08 00:00:00 Completed [facility] Influenza Virus Vaccine Quad IM, Preserv and ABX Free 6 MO-64 YRS 2022-03-08 00:00:00 Completed [facility] HPV9 2022-01-20 00:00:00 Completed [facility] HPV9 2022-01-20 00:00:00 Completed [facility] HPV9 2022-01-20 00:00:00 Completed [facility] HPV9 2022-01-20 00:00:00 Completed [facility] HPV9 2022-01-20 00:00:00 Completed [facility] HPV9 2022-01-20 00:00:00 Completed [facility] Influenza Virus Vaccine Quad IM, Preserv and ABX Free 2-64 YRS 2020-11-16 00:00:00 Completed [facility] Influenza Virus Vaccine Quad IM, Preserv and ABX Free 6 MO-64 YRS 2020-11-16 00:00:00 Completed [facility] Influenza Virus Vaccine Quad IM, Preserv and ABX Free 6 MO-64 YRS 2020-11-16 00:00:00 Completed [facility] Influenza Virus Vaccine Quad IM, Preserv and ABX Free 6 MO-64 YRS 2020-11-16 00:00:00 Completed [facility] Influenza Virus Vaccine Quad IM, Preserv and ABX Free 6 MO-64 YRS 2020-11-16 00:00:00 Completed [facility] Influenza Virus Vaccine Quad IM, Preserv and ABX Free 6 MO-64 YRS 2020-11-16 00:00:00 Completed [facility] Influenza Virus Vaccine Quad IM, Preserv and ABX Free 6 MO-64 YRS 2020-11-16 00:00:00 Completed [facility] Influenza Virus Vaccine Quad IM, Preserv and ABX Free 6 MO-64 YRS 2020-11-16 00:00:00 Completed [facility] Influenza Virus Vaccine Quad IM, Preserv and ABX Free 6 MO-64 YRS 2020-11-16 00:00:00 Completed [facility] HPV9 2020-10-06 00:00:00 Completed [facility] Varicella (varivax)(chicken pox) 2020-10-06 00:00:00 Completed [facility] HPV9 2020-10-06 00:00:00 Completed [facility] Varicella (varivax)(chicken pox) 2020-10-06 00:00:00 Completed [facility] HPV9 2020-10-06 00:00:00 Completed [facility] Varicella (varivax)(chicken pox) 2020-10-06 00:00:00 Completed [facility] 2020-10-06 00:00:00 Completed [facility] Varicella (varivax)(chicken pox) 2020-10-06 00:00:00 Completed [facility] 2020-10-06 00:00:00 Completed [facility] Varicella (varivax)(chicken pox) 2020-10-06 00:00:00 Completed [facility] 2020-10-06 00:00:00 Completed [facility] Varicella (varivax)(chicken pox) 2020-10-06 00:00:00 Completed [facility] 2020-10-06 00:00:00 Completed [facility] Varicella (varivax)(chicken pox) 2020-10-06 00:00:00 Completed [facility] 2020-10-06 00:00:00 Completed [facility] Varicella (varivax)(chicken pox) 2020-10-06 00:00:00 Completed [facility] 2020-10-06 00:00:00 Completed [facility] Varicella (varivax)(chicken pox) 2020-10-06 00:00:00 Completed [facility] TDAP 2020-07-31 00:00:00 Completed [facility] TDAP 2020-07-31 00:00:00 Completed [facility] TDAP 2020-07-31 00:00:00 Completed [facility] TDAP 2020-07-31 00:00:00 Completed [facility] TDAP 2020-07-31 00:00:00 Completed [facility] TDAP 2020-07-31 00:00:00 Completed [facility] TDAP 2020-07-31 00:00:00 Completed [facility] TDAP 2020-07-31 00:00:00 Completed [facility] TDAP 2020-07-31 00:00:00 Completed [facility] Influenza Virus Vaccine Quad .5 mL IM 6+ MO 2019-01-17 00:00:00 Completed [facility] HPV9 2019-01-17 00:00:00 Completed [facility] Influenza Virus Vaccine Quad .5 mL IM 6+ MO 2019-01-17 00:00:00 Completed [facility] HPV9 2019-01-17 00:00:00 Completed [facility] Influenza Virus Vaccine Quad .5 mL IM 6+ MO 2019-01-17 00:00:00 Completed [facility] HPV9 2019-01-17 00:00:00 Completed [facility] Influenza Virus Vaccine Quad .5 mL IM 6+ MO 2019-01-17 00:00:00 Completed [facility] HPV9 2019-01-17 00:00:00 Completed [facility] Influenza Virus Vaccine Quad .5 mL IM 6+ MO 2019-01-17 00:00:00 Completed [facility] HPV9 2019-01-17 00:00:00 Completed [facility] Influenza Virus Vaccine Quad .5 mL IM 6+ MO 2019-01-17 00:00:00 Completed [facility] HPV9 2019-01-17 00:00:00 Completed [facility] Influenza Virus Vaccine Quad .5 mL IM 6+ MO 2019-01-17 00:00:00 Completed [facility] HPV9 2019-01-17 00:00:00 Completed [facility] Influenza Virus Vaccine Quad .5 mL IM 6+ MO 2019-01-17 00:00:00 Completed [facility] HPV9 2019-01-17 00:00:00 Completed [facility] Influenza Virus Vaccine Quad .5 mL IM 6+ MO 2019-01-17 00:00:00 Completed [facility] HPV9 2019-01-17 00:00:00 Completed [facility] TDAP 2018-09-24 00:00:00 Completed [facility] TDAP 2018-09-24 00:00:00 Completed [facility] TDAP 2018-09-24 00:00:00 Completed [facility] TDAP 2018-09-24 00:00:00 Completed [facility] TDAP 2018-09-24 00:00:00 Completed [facility] TDAP 2018-09-24 00:00:00 Completed [facility] TDAP 2018-09-24 00:00:00 Completed [facility] TDAP 2018-09-24 00:00:00 Completed [facility] TDAP 2018-09-24 00:00:00 Completed [facility] Influenza Virus Vaccine Quad .5 mL IM 6+ MO 2018-04-18 00:00:00 Completed [facility] Influenza Virus Vaccine Quad .5 mL IM 6+ MO 2018-04-18 00:00:00 Completed [facility] Influenza Virus Vaccine Quad .5 mL IM 6+ MO 2018-04-18 00:00:00 Completed [facility] Influenza Virus Vaccine Quad .5 mL IM 6+ MO 2018-04-18 00:00:00 Completed [facility] Influenza Virus Vaccine Quad .5 mL IM 6+ MO 2018-04-18 00:00:00 Completed [facility] Influenza Virus Vaccine Quad .5 mL IM 6+ MO 2018-04-18 00:00:00 Completed [facility] Influenza Virus Vaccine Quad .5 mL IM 6+ MO 2018-04-18 00:00:00 Completed [facility] Influenza Virus Vaccine Quad .5 mL IM 6+ MO 2018-04-18 00:00:00 Completed [facility] Influenza Virus Vaccine Quad .5 mL IM 6+ MO 2018-04-18 00:00:00 Completed [facility] Hep B, Adol or Pedi Dosage 2000 00:00:00 Completed [facility] Hep B, Adol or Pedi Dosage 2000 00:00:00 Completed [facility] Hep B, Adol or Pedi Dosage 2000 00:00:00 Completed [facility] Hep B, Adol or Pedi Dosage 2000 00:00:00 Completed [facility] Hep B, Adol or Pedi Dosage 2000 00:00:00 Completed [facility] Influenza Virus Vaccine Quad .5 mL IM 6+ MO (FLUZONE/FLULAVAL/F LUARIX) Unknown Completed [facility] TDAP Unknown Completed [facility] Influenza Virus Vaccine Quad .5 mL IM 6+ MO (FLUZONE/FLULAVAL/F LUARIX) Unknown Completed [facility] HPV9 Unknown Completed [facility] TDAP Unknown Completed [facility] Hep B, Adol or Pedi Dosage Unknown Completed [facility] Influenza Virus Vaccine Quad .5 mL IM 6+ MO (FLUZONE/FLULAVAL/F LUARIX) Unknown Completed [facility] TDAP Unknown Completed [facility] Influenza Virus Vaccine Quad .5 mL IM 6+ MO (FLUZONE/FLULAVAL/F LUARIX) Unknown Completed [facility] HPV9 Unknown Completed [facility] TDAP Unknown Completed [facility] HPV9 Unknown Completed [facility] Varicella (varivax)(chicken pox) Unknown Completed [facility] Influenza Virus Vaccine Quad IM, Preserv and ABX Free 6 MO-64 YRS (FLUCELVAX) Unknown Completed [facility] HPV9 Unknown Completed [facility] Hep B, Adol or Pedi Dosage Unknown Completed [facility] Influenza Virus Vaccine Quad IM, Preserv and ABX Free 6 MO-64 YRS (FLUCELVAX) Unknown Completed [facility] Influenza Virus Vaccine Quad .5 mL IM 6+ MO (FLUZONE/FLULAVAL/F LUARIX) Unknown Completed [facility] TDAP Unknown Completed [facility] Influenza Virus Vaccine Quad .5 mL IM 6+ MO (FLUZONE/FLULAVAL/F LUARIX) Unknown Completed [facility] HPV9 Unknown Completed [facility] TDAP Unknown Completed [facility] HPV9 Unknown Completed [facility] Varicella (varivax)(chicken pox) Unknown Completed [facility] Influenza Virus Vaccine Quad IM, Preserv and ABX Free 6 MO-64 YRS (FLUCELVAX) Unknown Completed [facility] HPV9 Unknown Completed [facility] Hep B, Adol or Pedi Dosage Unknown Completed [facility] Influenza Virus Vaccine Quad IM, Preserv and ABX Free 6 MO-64 YRS (FLUCELVAX) Unknown Completed [facility] Influenza Virus Vaccine Quad .5 mL IM 6+ MO (FLUZONE/FLULAVAL/F LUARIX) Unknown Completed [facility] TDAP Unknown Completed [facility] Influenza Virus Vaccine Quad .5 mL IM 6+ MO (FLUZONE/FLULAVAL/F LUARIX) Unknown Completed [facility] HPV9 Unknown Completed [facility] TDAP Unknown Completed [facility] HPV9 Unknown Completed [facility] Varicella (varivax)(chicken pox) Unknown Completed [facility] Influenza Virus Vaccine Quad IM, Preserv and ABX Free 6 MO-64 YRS (FLUCELVAX) Unknown Completed [facility] HPV9 Unknown Completed [facility] Hep B, Adol or Pedi Dosage Unknown Completed [facility] Influenza Virus Vaccine Quad IM, Preserv and ABX Free 6 MO-64 YRS (FLUCELVAX) Unknown Completed [facility] Influenza Virus Vaccine Quad .5 mL IM 6+ MO (FLUZONE/FLULAVAL/F LUARIX) Unknown Completed [facility] TDAP Unknown Completed [facility] Influenza Virus Vaccine Quad .5 mL IM 6+ MO (FLUZONE/FLULAVAL/F LUARIX) Unknown Completed [facility] HPV9 Unknown Completed [facility] TDAP Unknown Completed [facility] HPV9 Unknown Completed [facility] Varicella (varivax)(chicken pox) Unknown Completed [facility] Influenza Virus Vaccine Quad IM, Preserv and ABX Free 6 MO-64 YRS (FLUCELVAX) Unknown Completed [facility] HPV9 Unknown Completed [facility] Hep B, Adol or Pedi Dosage Unknown Completed [facility] Influenza Virus Vaccine Quad IM, Preserv and ABX Free 6 MO-64 YRS (FLUCELVAX) Unknown Completed [facility] Influenza Virus Vaccine Quad .5 mL IM 6+ MO (FLUZONE/FLULAVAL/F LUARIX) Unknown Completed [facility] TDAP Unknown Completed [facility] Influenza Virus Vaccine Quad .5 mL IM 6+ MO (FLUZONE/FLULAVAL/F LUARIX) Unknown Completed [facility] HPV9 Unknown Completed [facility] TDAP Unknown Completed [facility] HPV9 Unknown Completed [facility] Varicella (varivax)(chicken pox) Unknown Completed [facility] Influenza Virus Vaccine Quad IM, Preserv and ABX Free 6 MO-64 YRS (FLUCELVAX) Unknown Completed [facility] HPV9 Unknown Completed [facility] Hep B, Adol or Pedi Dosage Unknown Completed [facility] Influenza Virus Vaccine Quad IM, Preserv and ABX Free 6 MO-64 YRS (FLUCELVAX) Unknown Completed [facility] Influenza Virus Vaccine Quad .5 mL IM 6+ MO (FLUZONE/FLULAVAL/F LUARIX) Unknown Completed [facility] TDAP Unknown Completed [facility] Influenza Virus Vaccine Quad .5 mL IM 6+ MO (FLUZONE/FLULAVAL/F LUARIX) Unknown Completed [facility] HPV9 Unknown Completed [facility] TDAP Unknown Completed [facility] HPV9 Unknown Completed [facility] Varicella (varivax)(chicken pox) Unknown Completed [facility] Influenza Virus Vaccine Quad IM, Preserv and ABX Free 6 MO-64 YRS (FLUCELVAX) Unknown Completed [facility] HPV9 Unknown Completed [facility] Hep B, Adol or Pedi Dosage Unknown Completed [facility] Influenza Virus Vaccine Quad IM, Preserv and ABX Free 6 MO-64 YRS (FLUCELVAX) Unknown Completed [facility] Influenza Virus Vaccine Quad .5 mL IM 6+ MO (FLUZONE/FLULAVAL/F LUARIX) Unknown Completed [facility] TDAP Unknown Completed [facility] Influenza Virus Vaccine Quad .5 mL IM 6+ MO (FLUZONE/FLULAVAL/F LUARIX) Unknown Completed [facility] HPV9 Unknown Completed [facility] TDAP Unknown Completed [facility] HPV9 Unknown Completed [facility] Varicella (varivax)(chicken pox) Unknown Completed [facility] Influenza Virus Vaccine Quad IM, Preserv and ABX Free 6 MO-64 YRS (FLUCELVAX) Unknown Completed [facility] HPV9 Unknown Completed [facility] Hep B, Adol or Pedi Dosage Unknown Completed [facility] Influenza Virus Vaccine Quad IM, Preserv and ABX Free 6 MO-64 YRS (FLUCELVAX) Unknown Completed [facility] Influenza Virus Vaccine Quad .5 mL IM 6+ MO (FLUZONE/FLULAVAL/F LUARIX) Unknown Completed [facility] TDAP Unknown Completed [facility] Influenza Virus Vaccine Quad .5 mL IM 6+ MO (FLUZONE/FLULAVAL/F LUARIX) Unknown Completed [facility] HPV9 Unknown Completed [facility] TDAP Unknown Completed [facility] HPV9 Unknown Completed [facility] Varicella (varivax)(chicken pox) Unknown Completed [facility] Influenza Virus Vaccine Quad IM, Preserv and ABX Free 6 MO-64 YRS (FLUCELVAX) Unknown Completed [facility] HPV9 Unknown Completed [facility] Hep B, Adol or Pedi Dosage Unknown Completed [facility] Influenza Virus Vaccine Quad IM, Preserv and ABX Free 6 MO-64 YRS (FLUCELVAX) Unknown Completed [facility] Influenza Virus Vaccine Quad .5 mL IM 6+ MO (FLUZONE/FLULAVAL/F LUARIX) Unknown Completed [facility] TDAP Unknown Completed [facility] Influenza Virus Vaccine Quad .5 mL IM 6+ MO (FLUZONE/FLULAVAL/F LUARIX) Unknown Completed [facility] HPV9 Unknown Completed [facility] TDAP Unknown Completed [facility] HPV9 Unknown Completed [facility] Varicella (varivax)(chicken pox) Unknown Completed [facility] Influenza Virus Vaccine Quad IM, Preserv and ABX Free 6 MO-64 YRS (FLUCELVAX) Unknown Completed [facility] HPV9 Unknown Completed [facility] Hep B, Adol or Pedi Dosage Unknown Completed [facility] Influenza Virus Vaccine Quad IM, Preserv and ABX Free 6 MO-64 YRS (FLUCELVAX) Unknown Completed [facility] Influenza Virus Vaccine Quad .5 mL IM 6+ MO (FLUZONE/FLULAVAL/F LUARIX) Unknown Completed [facility] TDAP Unknown Completed [facility] Influenza Virus Vaccine Quad .5 mL IM 6+ MO (FLUZONE/FLULAVAL/F LUARIX) Unknown Completed [facility] HPV9 Unknown Completed [facility] TDAP Unknown Completed [facility] HPV9 Unknown Completed [facility] Varicella (varivax)(chicken pox) Unknown Completed [facility] Influenza Virus Vaccine Quad IM, Preserv and ABX Free 6 MO-64 YRS (FLUCELVAX) Unknown Completed [facility] HPV9 Unknown Completed [facility] Hep B, Adol or Pedi Dosage Unknown Completed [facility] Influenza Virus Vaccine Quad IM, Preserv and ABX Free 6 MO-64 YRS (FLUCELVAX) Unknown Completed [facility] Influenza Virus Vaccine Quad .5 mL IM 6+ MO (FLUZONE/FLULAVAL/F LUARIX) Unknown Completed [facility] TDAP Unknown Completed [facility] Influenza Virus Vaccine Quad .5 mL IM 6+ MO (FLUZONE/FLULAVAL/F LUARIX) Unknown Completed [facility] HPV9 Unknown Completed [facility] TDAP Unknown Completed [facility] HPV9 Unknown Completed [facility] Varicella (varivax)(chicken pox) Unknown Completed [facility] Influenza Virus Vaccine Quad IM, Preserv and ABX Free 6 MO-64 YRS (FLUCELVAX) Unknown Completed [facility] HPV9 Unknown Completed [facility] Hep B, Adol or Pedi Dosage Unknown Completed [facility] Influenza Virus Vaccine Quad IM, Preserv and ABX Free 6 MO-64 YRS (FLUCELVAX) Unknown Completed [facility] Influenza Virus Vaccine Quad .5 mL IM 6+ MO (FLUZONE/FLULAVAL/F LUARIX) Unknown Completed [facility] TDAP Unknown Completed [facility] Influenza Virus Vaccine Quad .5 mL IM 6+ MO (FLUZONE/FLULAVAL/F LUARIX) Unknown Completed [facility] HPV9 Unknown Completed [facility] TDAP Unknown Completed [facility] HPV9 Unknown Completed [facility] Varicella (varivax)(chicken pox) Unknown Completed [facility] Influenza Virus Vaccine Quad IM, Preserv and ABX Free 6 MO-64 YRS (FLUCELVAX) Unknown Completed [facility] HPV9 Unknown Completed [facility] Hep B, Adol or Pedi Dosage Unknown Completed [facility] Influenza Virus Vaccine Quad IM, Preserv and ABX Free 6 MO-64 YRS (FLUCELVAX) Unknown Completed [facility] Vital Signs Vital Name Observation Time Observation Value Comments S ource Systolic blood pressure 2023-07-12 15:05:00 123 mm[Hg] [facility] Diastolic blood pressure 2023-07-12 15:05:00 80 mm[Hg] [facility] Heart rate 2023-07-12 15:05:00 108 /min [facility] Body temperature 2023-07-12 15:05:00 36.5 Gena [facility] Respiratory rate 2023-07-12 15:05:00 18 /min [facility] Body height 2023-07-12 15:05:00 170.2 cm [facility] Body weight 2023-07-12 15:05:00 106.17 kg [facility] BMI 2023-07-12 15:05:00 36.66 kg/m2 [facility] Systolic blood pressure 2023-06-07 16:11:00 122 mm[Hg] [facility] Diastolic blood pressure 2023-06-07 16:11:00 86 mm[Hg] [facility] Heart rate 2023-06-07 16:11:00 94 /min [facility] Body temperature 2023-06-07 16:11:00 36.5 Gena [facility] Respiratory rate 2023-06-07 16:11:00 18 /min [facility] Body height 2023-06-07 16:11:00 170.2 cm [facility] Body weight 2023-06-07 16:11:00 106.255 kg [facility] BMI 2023-06-07 16:11:00 36.69 kg/m2 [facility] Systolic blood pressure 2023-05-10 13:17:00 116 mm[Hg] [facility] Diastolic blood pressure 2023-05-10 13:17:00 82 mm[Hg] [facility] Heart rate 2023-05-10 13:17:00 107 /min [facility] Body temperature 2023-05-10 13:14:00 36.28 Gena [facility] Respiratory rate 2023-05-10 13:14:00 18 /min [facility] Body height 2023-05-10 13:14:00 170.2 cm [facility] Body weight 2023-05-10 13:14:00 110.026 kg [facility] BMI 2023-05-10 13:14:00 37.99 kg/m2 [facility] Systolic blood pressure 2023-04-12 14:32:00 124 mm[Hg] [facility] Diastolic blood pressure 2023-04-12 14:32:00 78 mm[Hg] [facility] Heart rate 2023-04-12 14:32:00 101 /min [facility] Body temperature 2023-04-12 14:32:00 36.83 Gena [facility] Respiratory rate 2023-04-12 14:32:00 18 /min [facility] Body height 2023-04-12 14:32:00 170.2 cm [facility] Body weight 2023-04-12 14:32:00 110.309 kg [facility] BMI 2023-04-12 14:32:00 38.09 kg/m2 [facility] Systolic blood pressure 2022-03-08 19:14:00 110 mm[Hg] [facility] Diastolic blood pressure 2022-03-08 19:14:00 74 mm[Hg] [facility] Heart rate 2022-03-08 19:14:00 80 /min [facility] Body temperature 2022-03-08 19:14:00 36.11 Gena [facility] Respiratory rate 2022-03-08 19:14:00 18 /min [facility] Body height 2022-03-08 19:14:00 170.2 cm [facility] Body weight 2022-03-08 19:14:00 93.759 kg [facility] BMI 2022-03-08 19:14:00 32.37 kg/m2 [facility] Systolic blood pressure 2022-01-20 21:54:00 113 mm[Hg] [facility] Diastolic blood pressure 2022-01-20 21:54:00 71 mm[Hg] [facility] Heart rate 2022-01-20 21:54:00 82 /min [facility] Body temperature 2022-01-20 21:54:00 36.56 Gena [facility] Respiratory rate 2022-01-20 21:54:00 20 /min [facility] Body height 2022-01-20 21:54:00 170.2 cm [facility] Body weight 2022-01-20 21:54:00 93.078 kg [facility] BMI 2022-01-20 21:54:00 32.14 kg/m2 [facility] Systolic blood pressure 2020-11-16 18:18:00 110 mm[Hg] [facility] Diastolic blood pressure 2020-11-16 18:18:00 76 mm[Hg] [facility] Heart rate 2020-11-16 18:18:00 84 /min [facility] Body temperature 2020-11-16 18:18:00 36.39 Gena [facility] Respiratory rate 2020-11-16 18:18:00 20 /min [facility] Body height 2020-11-16 18:18:00 170.2 cm [facility] Body weight 2020-11-16 18:18:00 89.994 kg [facility] BMI 2020-11-16 18:18:00 31.07 kg/m2 [facility] Weight 2017-09-13 13:37:00 184 [lb_av] [facility] Body Mass Index Calculated 2017-09-13 13:37:00 28.82 kg/m2 [facility] Heart Rate 2017-09-13 13:37:00 90 /min [facility] BP Systolic 2017-09-13 13:37:00 113 mm[Hg] Location: LUE; Position: Sitting [facility] BP Diastolic 2017-09-13 13:37:00 68 mm[Hg] Location: LUE; Position: Sitting [facility] Height 2017-09-13 13:37:00 67 [in_us] [facility] Procedures Procedure Date / Time Performed Performing Clinicia n Source POCT URINALYSIS 2023-07-12 15:05:00 Jen Jiménez [facility] POCT URINALYSIS 2023-06-07 16:12:00 Jen Jiménez [facility] POCT URINALYSIS 2023-05-10 13:21:00 Jen Jiménez [facility] SECOND AND THIRD TRIMESTER ULTRASOUND 2023-05-03 19:29:15 Doctor Unassigned, [place] [facility] GLUCOSE 1 HOUR POST PRANDIAL 2023-04-12 15:33:00 Jen Jiménez [facility] CBC WITH DIFF 2023-04-12 15:33:00 Jen Jiménez [facility] HEPATITIS B SURFACE ANTIGEN 2023-04-12 15:33:00 Jen Jiménez [facility] HCV ANTIBODY 2023-04-12 15:33:00 [facility] 2023-04-12 15:33:00 Jen Jiménez [facility] HIV 1/2 AG-AB WITH REFLEX 2023-04-12 15:33:00 Jen Jiménez [facility] PAP SMEAR-LIQUID BASED-CP 2023-04-12 15:33:00 Jen Jiménez [facility] POCT TEST 2023-04-12 14:25:00 Jalyn Jiménez [facility] POCT URINALYSIS W/O SPECIFIC GRAVITY 2023-04-12 14:25:00 Jen Jiménez [facility] ASSIGNMENT OF BENEFITS 2023-04-12 14:04:48 Docto r Unassigned, [place] [facility] POCT TEST 2022-03-08 20:49:00 Jj Mcdonald [facility] FLU VACC (), 6 MO-64 YRS, .5ML, IM, QUAD (FLUCELVAX) 2022-03-08 20:00:34 Cielo Mcdonald [facility] ASSIGNMENT OF BENEFITS 2022-03-08 19:03:42 Docto r Unassigned, [place] [facility] GARDASIL 9 (HPV 9V) VACCINE 2022-01-20 22:26:57 Cielo Mcdonald [facility] ASSIGNMENT OF BENEFITS 2022-01-20 21:24:17 Docto r Unassigned, [place] [facility] FLU VACC ([id number]), 2-64 YRS, .5ML, IM, QUAD (FLUCELVAX) 2020-11-16 18:54:25 Arlene Ashley [facility] POCT TEST 2020-11-16 18:22:00 Jude Ashley [facility] Encounters Start Date/Time End Date/Time Encounter Type Admission Type Attending Clinicians Care Facility Care Department Encounter ID Source 2020-12-07 18:53:09 Outpatient [facility] [id number] [facility] 2023-08-07 08:00:00 2023-08-07 08:00:00 Outpatient R [facility] [id number] [facility] 2023-07-12 10:00:00 2023-07-12 10:41:20 Outpatient OFELIA DAVILA JELISA [facility] [id number] [facility] 2023-07-12 10:00:00 2023-07-12 10:41:20 Routine Visit Provider, Cielo Carbajal Jelisa [facility] TRANSPORT MANAGER [facility] & CHILD [facility] ..840.114 350.1.13.10 4.2.7.2.686 [id number] [facility] 2023-07-05 09:45:00 2023-07-05 09:45:00 Outpatient R CIELO MCDONALD [facility] [id number] [facility] 2023-06-07 11:00:00 2023-06-07 11:41:48 Outpatient R JEN JIMÉNEZ [facility] [id number] [facility] 2023-06-07 11:00:00 2023-06-07 11:41:48 Routine Visit Jen Jiménez [facility] TRANSPORT MANAGER [facility] & CHILD [facility] ..840.114 350.1.13.10 4.2.7.2.686 [id number] [facility] 2023-05-10 08:00:00 2023-05-10 08:57:37 Outpatient R JEN JIMÉNEZ [facility] [id number] [facility] 2023-05-10 08:00:00 2023-05-10 08:57:37 Routine Visit Jen Jiménez [facility] TRANSPORT MANAGER [facility] & CHILD [facility] 1.2.840.114 350.1.13.10 4.2.7.2.686 [id number] [facility] 2023-05-05 00:00:00 2023-05-05 00:00:00 [facility] Management [facility] MANAGER [facility] CHILD [facility] 1.2840.114 350.1.13.10 4.2.7.2.686 [id number] [facility] 2023-05-03 09:30:00 2023-05-03 10:11:43 Outpatient R QUINCY DAIGLE KARIN [facility] [id number] [facility] 2023-05-03 09:30:00 2023-05-03 10:11:43 Project Archivist Visit Ultrasound, Quincy Browning [facility] TRANSPORT MANAGER [facility] & CHILD [facility] 1.2840.114 350.1.13.10 4.2.7.2.686 [id number] [facility] 2023-04-14 00:00:00 2023-04-14 00:00:[address] Jiménez [facility] TRANSPORT MANAGER [facility] 1.2840.114 350.1.13.10 4.2.7.2.686 [id number] [facility] 2023-04-14 00:00:00 2023-04-14 00:00:00 Case Management [facility] TRANSPORT MANAGER [facility] CHILD [facility] 1..114 350.1.13.10 4.2.7.2.686 [id number] [facility] 2023-04-12 08:15:00 2023-04-12 09:57:46 Outpatient R JEN JIMÉNEZ [facility] [id number] [facility] 2023-04-12 08:15:00 2023-04-12 09:57:46 Initial Visit Jen Jiménez [facility] TRANSPORT MANAGER [facility] CHILD [facility] 1..114 350.1.13.10 4.2.7.2.686 [id number] [facility] 2023-04-12 00:00:00 2023-04-12 00:00:00 Orders Only Doctor Unassigned, [place] [facility] 1.84.114 350.1.13.10 4.2.7.2.686 [id number] [facility] 2023-04-11 08:30:00 2023-04-11 08:30:00 Outpatient R CIELO MCDONALD [facility] [id number] [facility] 2022-03-08 13:00:00 2022-03-08 14:44:25 Outpatient R CIELO MCDONALD [facility] [id number] [facility] 2022-03-08 13:00:00 2022-03-08 14:44:25 Office Visit Cielo Mcdonald [facility] TRANSPORT MANAGER [facility] CHILD [facility] 1..114 350.1.13.10 4.2.7.2.686 [id number] [facility] 2022-03-08 00:00:00 2022-03-08 00:00:00 Orders Only Doctor Unassigned, [place] [facility] 1..114 350.1.13.10 4.2.7.2.686 [id number] [facility] 2022-01-20 15:30:00 2022-01-20 16:44:45 Nurse Visit Nurse, Palmer Rmchp Exp Cprit ObgyCielo Roman [facility] TRANSPORT MANAGER [facility] CHILD [facility] 1.840.114 350.1.13.10 4.2.7.2.686 [id number] [facility] 2022-01-20 15:30:00 2022-01-20 15:30:00 Outpatient R CIELO MCDONALD [facility] [id number] [facility] 2022-01-20 00:00:00 2022-01-20 00:00:00 Orders Only Doctor Unassigned, [place] [facility] 1.84.114 350.1.13.10 4.2.7.2.686 [id number] [facility] 2022-01-06 14:00:00 2022-01-06 14:00:00 Outpatient R [facility] [id number] [facility] 2021-03-17 00:00:00 2021-03-17 00:00:00 Refill Arlene Ashley [facility] TRANSPORT MANAGER [facility] CHILD [facility] 1.840.114 350.1.13.10 4.2.7.2.686 [id number] [facility] 2020-11-26 11:00:00 2020-11-26 11:00:00 Outpatient R ARLENE ASHLEY [facility] [id number] [facility] 2020-11-16 13:09:52 2020-11-16 14:05:19 Office Visit Arlene Ashley [facility] TRANSPORT MANAGER [facility] CHILD [facility] 1.84.114 350.1.13.10 4.2.7.2.686 [id number] [facility] 2020-11-16 13:00:00 2020-11-16 13:00:00 Outpatient R GABI ARLENE [facility] [id number] [facility] 2020-10-26 10:44:17 2020-10-26 11:07:21 Routine Visit Balbir Zhou [facility] TRANSPORT MANAGER [facility] & CHILD [facility] 1.840.114 350.1.13.10 4.2.7.2.686 [id number] [facility] 2020-10-26 10:45:00 2020-10-26 10:45:00 Outpatient R ZHOU, BALBIR [facility] [id number] [facility] 2020-10-04 20:14:00 2020-10-06 15:14:00 Hospital Encounter Freeman Mcdonald [facility] 1.0.114 350.1.13.10 4.2.7.2.686 [id number] [facility] 2020-10-05 04:52:00 2020-10-05 12:20:00 Anesthesia Event Yony Song Rakesh B [facility] 1.0.114 350.1.13.10 4.2.7.2.686 [id number] [facility] 2020-10-02 00:00:00 2020-10-02 00:00:00 Telephone Dalia Villasenor [facility] TRANSPORT MANAGER [facility] 1..114 350.1.13.10 4.2.7.2.686 [id number] [facility] 2020-10-01 14:54:49 2020-10-01 16:05:05 Routine Visit Dalia Villasenor [facility] TRANSPORT MANAGER [facility] 1.840.114 350.1.13.10 4.2.7.2.686 [id number] [facility] 2020-10-01 15:00:00 2020-10-01 15:00:00 Outpatient DALIA ABDI [facility] [id number] [facility] 2020-09-28 10:45:00 2020-09-28 10:45:00 Outpatient DALIA ABDI [facility] [id number] [facility] 2020-09-21 09:00:00 2020-09-21 09:00:00 Outpatient DALIA ABDI [facility] [id number] [facility] 2020-09-03 14:30:00 2020-09-03 14:30:00 Outpatient LATASHA WYMAN [facility] [id number] [facility] 2020-08-31 00:00:00 2020-08-31 00:00:00 Patient Secure Msg Doctor Unassigned, [place] [facility] 1.2.840.114 350.1.13.10 4.2.7.2.686 [id number] [facility] 2020-08-20 10:30:00 2020-08-20 10:30:00 Outpatient LATASHA WYMAN [facility] [id number] [facility] 2020-08-19 09:00:00 2020-08-19 09:00:00 Outpatient P [facility] [id number] [facility] 2020-08-17 09:30:00 2020-08-17 09:30:00 Outpatient DALIA ABDI [facility] [id number] [facility] 2020-08-14 15:30:00 2020-08-14 15:30:00 Outpatient LATASHA WYMAN [facility] [id number] [facility] 2020-08-11 10:30:00 2020-08-11 10:30:00 Outpatient R [facility] [id number] [facility] 2020-07-31 08:00:00 2020-07-31 08:00:00 Outpatient CHAILNO CHURCH [facility] [id number] [facility] 2020-07-14 10:45:00 2020-07-14 10:45:00 Outpatient P [facility] [id number] [facility] 2020-07-03 08:00:00 2020-07-03 08:00:00 Outpatient R [facility] [id number] [facility] 2019-04-04 00:00:00 2019-04-04 00:00:00 Telephone Balbir Zhou [facility] TRANSPORT MANAGER [facility] CHILD [facility] 1.2.840.114 350.1.13.10 4.2.7.2.686 [id number] 2018-10-23 11:04:47 2018-10-23 11:27:08 Routine Visit Balbir Zhou [facility] TRANSPORT MANAGER [facility] CHILD [facility] 1.2.840.114 350.1.13.10 4.2.7.2.686 [id number] 2018-10-09 10:02:18 2018-10-09 10:42:22 Routine Visit Balbir Zhou [facility] TRANSPORT MANAGER [facility]ILD [facility] 1.2.840.114 350.1.13.10 4.2.7.2.686 [id number] 2018-09-24 09:30:30 2018-09-24 14:04:21 Routine Visit Balbir Zhou [facility] TRANSPORT MANAGER [facility]ILD [facility] 1.2.840.114 350.1.13.10 4.2.7.2.686 [id number] 2017-09-13 14:00:00 2017-09-13 14:00:00 Suhail toro; HOPE ZUÑIGA M.D. WONG, MICHELLE, M.D. [facility] [id number] [place] [facility] Results Test Description Test Time Test Comments Results Result Co mments Source [facility]IFIC [id number] 15:06:00* Test Item Value Reference Range Interpretation Comme nts POCT U SP GRAV (test code = 3255) . 1.005-1.025 POCT PH U (test code = 3254) 5 mg/dl 5-8 POCT U LEUK EST (test code = 3263) Trace Negative - Negative POCT U NIT (test code = 3262) Neg Negative - Negati ve POCT U PROT (test code = 3259) Trace Negative - Negat duke POCT U GLU (test code = 3256) Nml Negative - Negati ve POCT U KETONE (test code = 3258) None Negative - Neg ative POCT U UROBILI (test code = 3260) . 0.2-1 POCT U BILI (test code = 3261) . Negative - Negat duke POCT U BLD (test code = 3257) Trace Negative - Negati ve POCT U COLOR (test code = 3266) . POCT U APPEAR (test code = 3267) [facility] URINALYSIS W SPECIFIC [id number] 15:06:00* Test Item Value Reference Range Interpretation Comme nts POCT U SP GRAV (test code = 3255) . 1.005-1.025 POCT PH U (test code = 3254) 5 mg/dl 5-8 POCT U LEUK EST (test code = 3263) Trace Negative - Negative POCT U NIT (test code = 3262) Neg Negative - Negati ve POCT U PROT (test code = 3259) Trace Negative - Negat duke POCT U GLU (test code = 3256) Nml Negative - Negati ve POCT U KETONE (test code = 3258) None Negative - Neg ative POCT U UROBILI (test code = 3260) . 0.2-1 POCT U BILI (test code = 3261) . Negative - Negat duke POCT U BLD (test code = 3257) Trace Negative - Negati ve POCT U COLOR (test code = 3266) . POCT U APPEAR (test code = 3267) [facility] URINALYSIS W SPECIFIC [id number] 15:06:00* Test Item Value Reference Range Interpretation Comme nts POCT U SP GRAV (test code = 3255) . 1.005-1.025 POCT PH U (test code = 3254) 5 mg/dl 5-8 POCT U LEUK EST (test code = 3263) Trace Negative - Negative POCT U NIT (test code = 3262) Neg Negative - Negati ve POCT U PROT (test code = 3259) Trace Negative - Negat duke POCT U GLU (test code = 3256) Nml Negative - Negati ve POCT U KETONE (test code = 3258) None Negative - Neg ative POCT U UROBILI (test code = 3260) . 0.2-1 POCT U BILI (test code = 3261) . Negative - Negat duke POCT U BLD (test code = 3257) Trace Negative - Negati ve POCT U COLOR (test code = 3266) . POCT U APPEAR (test code = 3267) [facility] URINALYSIS W SPECIFIC [id number] 16:12:00* Test Item Value Reference Range Interpretation Comme nts POCT U SP GRAV (test code = 3255) . 1.005-1.025 POCT PH U (test code = 3254) 5 mg/dl 5-8 POCT U LEUK EST (test code = 3263) Trace Negative - Negative POCT U NIT (test code = 3262) Neg Negative - Negati ve POCT U PROT (test code = 3259) 1+ Negative - Negat duke POCT U GLU (test code = 3256) 1+ Negative - Negati ve POCT U KETONE (test code = 3258) None Negative - Neg ative POCT U UROBILI (test code = 3260) . 0.2-1 POCT U BILI (test code = 3261) . Negative - Negat duke POCT U BLD (test code = 3257) Trace Negative - Negati ve POCT U COLOR (test code = 3266) POCT U APPEAR (test code = 3267) [facility] URINALYSIS W SPECIFIC [id number] 13:21:00* Test Item Value Reference Range Interpretation Comme nts POCT U SP GRAV (test code = 3255) . 1.005-1.025 POCT PH U (test code = 3254) 5 mg/dl 5-8 POCT U LEUK EST (test code = 3263) Trace Negative - Negative POCT U NIT (test code = 3262) Neg Negative - Negati ve POCT U PROT (test code = 3259) 1+ Negative - Negat duke POCT U GLU (test code = 3256) Nml Negative - Negati ve POCT U KETONE (test code = 3258) None Negative - Neg ative POCT U UROBILI (test code = 3260) . 0.2-1 POCT U BILI (test code = 3261) . Negative - Negat duke POCT U BLD (test code = 3257) Trace Negative - Negati ve POCT U COLOR (test code = 3266) . POCT U APPEAR (test code = 3267) .. [facility] 2023-05-03 19:29:15Ordered by an unspecified provider.[facility] WITH [id number] 08:11:31* Test Item Value Reference Range Interpretation Comme nts HIV Semi-quantitative (test code = 66033-6) 0.08 Negative GERSON (test code = GERSON) Non-reactive for HIV-1 antigen and HIV-1/HIV-2 antibodies. ?No laboratory evidence of HIV infection. ?Repeat in 2-4 weeks if acute HIV infection is suspected. [facility], BLOOD [id number] 07:00:00 * Test Item Value Reference Range Interpretation Comme nts ABO & RH (test code = 20) O POSITIVE IAT (test code = 1185) Negative [facility] [id number] 06:37:45* Test Item Value Reference Range Interpretation Comme nts HCV Ab (test code = 87228-5) Negative HCV Semi-Quantitative (test code = 40458-0) 0.02 [facility] SURFACE [id number] 06:20:45 * Test Item Value Reference Range Interpretation Comme nts HBsAg Semi-Quantitative (yimi t code = 5195-3) 0.05 Negative [facility] 1 Hour Post [id number] 05:40:37* Test Item Value Reference Range Interpretation Comme nts GLUC 1 HR (test code = 6898266149) 132 mg/dL 120-170 Lab Interpretation (test cod e = 68146-7) Normal [facility] WITH [id number] 04:57:59* Test Item Value Reference Range Interpretation Comme nts WBC (test code = 6690-2) 8.10 4.30-11.10 RBC (test code = 789-8) 4.89 3.93-5.25 HGB (test code = 718-7) 12.4 g/dL 11.6-15.0 HCT (test code = 4544-3) 39.2 % 35.7-45.2 MCV (test code = 787-2) 80.2 fL 80.6-95.5 L MCH (test code = 785-6) 25.4 pg 25.9-32.8 L MCHC (test code = 786-4) 31.6 g/dL 31.6-35.1 RDW-SD (test code = 42585-7) 39.8 fL 39.0-49.9 RDW-CV (test code = 788-0) 13.5 % 12.0-15.5 PLT (test code = 777-3) 316 166-358 MPV (test code = 37966-6) 9.8 fL 9.5-12.9 NRBC/100 WBC (test code = 1719288329) 0.0 0.0-10.0 NRBC x10^3 (test code = 9294455409) See_Comment [Automated messa ge] The system which generated this result transmitted reference range: 10*3/?L. The reference range was not used to interpret this result as normal/abnormal. GRAN MAT (NEUT) % (test code = 770-8) 69.9 % IMM GRAN % (test code = 7745183438) 1.00 % LYMPH % (test code = 736-9) 22.3 % MONO % (test code = 5905-5) 5.3 % EOS % (test code = 713-8) 1.0 % BASO % (test code = 706-2) 0.5 % GRAN MAT x10^3(ANC) (test code = 0086796106) 5.66 10*3/uL 1.88-7.09 IMM GRAN x10^3 (test code = 5784102323) 0.08 10*3/uL 0.00-0.06 H LYMPH x10^3 (test code = 731-0) 1.81 10*3/uL 1.32-3.29 MONO x10^3 (test code = 742-7) 0.43 10*3/uL 0.33-0.92 EOS x10^3 (test code = 711-2) 0.08 10*3/uL 0.03-0.39 BASO x10^3 (test code = 704-7) 0.04 10*3/uL 0.01-0.07 Lab Interpretation (test code = 39512-1) Abnormal [facility] [id number] 14:25:00* Test Item Value Reference Range Interpretation Comme nts POCT PREG (test code = 1605) Positive On board controls acceptable with C Line (test code = 3574) Yes POCT PREG LOT # (test code = 3575) POCT PREG TEST DATE ( test code = 357) [facility] Urinalysis w/o Specific [id number] 14:25:00* Test Item Value Reference Range Interpretation Comme nts POCT PH U (test code = 3254) 5 mg/dl 5-8 POCT U LEUK EST (test code = 3263) Trace Negative - Negative POCT U NIT (test code = 3262) Neg Negative - Negati ve POCT U PROT (test code = 3259) Trace Negative - Negat duke POCT U GLU (test code = 3256) Nml Negative - Negati ve POCT U KETONE (test code = 3258) None Negative - Neg ative POCT U BLD (test code = 3257) Trace Negative - Negati ve [facility] [id number] 20:49:00* Test Item Value Reference Range Interpretation Comme nts POCT PREG (test code = 1605) Negative On board controls acceptable with C Line (test code = 3574) Yes POCT PREG LOT # (test code = 3575) POCT PREG TEST DATE ( test code = 3576) [facility] [id number] 20:49:00* Test Item Value Reference Range Interpretation Comme nts POCT PREG (test code = 1605) Negative On board controls acceptable with C Line (test code = 3574) Yes POCT PREG LOT # (test code = 3575) PO[facility] TEST DATE ( test code = 3576[id number]* Test Item Value Reference Range Interpretation Comme nts POCT PREG (test code = 1605) Negative On board controls acceptable with C Line (test code = 3574) Yes POCT PREG LOT # (test code = 3575) POCT PREG TEST DATE ( test code = 3576) [facility] [id number] 20:49:00* Test Item Value Reference Range Interpretation Comme nts POCT PREG (test code = 1605) Negative On board controls acceptable with C Line (test code = 3574) Yes POCT PREG LOT # (test code = 3575) POCT PREG TEST DATE ( test code = 3576) [facility] [id number] 18:22:00* Test Item Value Reference Range Interpretation Comme nts POCT PREG (test code = 1605) Negative On board controls acceptable with C Line (test code = 3574) Yes POCT PREG LOT # (test code = 3575) POCT PREG TEST DATE ( test code = 3576) [facility] Notes Date/Time Note Provider Source 2023-04-14 09:08:50 [id number] ormatting of this note might be different from the original.Nicolasa Choudhary Pamela is a 23 year old female6 wks 4 days [facility] her medicaid was approved on 04/13/2023 and requesting an order for an ultrasound. Please call pt at [phone] (home) [id number] encounter [id number] encounter [id number] for patient [id number] C-CDA narrative [id number] A [address] [id number] [id number] Teresa Hui [facility]
--- NOTE | 2023-07-21 03:08 | EDPHYS ---
Physician Documentation [facility] Name: Nicolasa Mas Age: 23 yrs Sex: Female : 2000 Arrival Date: 07/21/2023 Time: 01:13 Bed 14 Private MD: ED Physician Kurt Bruce HPI: 07/20 01:55 This 23 yrs old Female presents to ER via Ambulatory with complaints of Pt is sp4 19weeks preg and toddler hit her in the stomach. 02:02 23-year-old female at 19 weeks 0 days EGA presents with acute abdominal injury sp4 at midnight. Patient reports her 2-year-old daughter fell onto her gravid abdomen. This caused lower abdominal soreness. Patient is here to make sure that her fetus looks normal. She is requesting ultrasound. . 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 - Infectious Disease History:: MRSA (w/in 1 year), . - Social history:: Patient/guardian denies using alcohol, street drugs, IV drugs, Patient/guardian denies using alcohol, street drugs, IV drugs, Smoking status: Patient denies any tobacco usage or history of. - Family history:: not pertinent. ROS: 02:04 Constitutional: Negative for fever, chills, and weight loss, positive for abdominal sp4 injury and lower abdominal soreness. 02:04 All other systems are negative, Exam: 02:04 Constitutional: This is a well developed, well nourished patient who is awake, alert, sp4 and in no acute distress. Head/Face: Normocephalic, atraumatic. Eyes: Pupils equal round and reactive to light, extra-ocular motions intact. Lids and lashes normal. Conjunctiva and sclera are not injected. Cornea within normal limits. Periorbital areas with no swelling, redness, or edema. ENT: Nares patent. No nasal discharge, no septal abnormalities noted. Tympanic membranes are normal and external auditory canals are clear. Oropharynx with no redness, swelling, or masses, exudates, or evidence of obstruction, uvula midline. Mucous membranes moist. Neck: Trachea midline, no thyromegaly or masses palpated, and no cervical lymphadenopathy. Supple, full range of motion without nuchal rigidity, or vertebral point tenderness. Chest/axilla: Normal chest wall appearance and motion. Nontender with no deformity. No lesions are appreciated. Cardiovascular: Regular rate and rhythm with a normal S1 and S2. No gallops, murmurs, or rubs. Normal PMI, no JVD. No pulse deficits. Respiratory: Lungs have equal breath sounds bilaterally, clear to auscultation and percussion. No rales, rhonchi or wheezes noted. No increased work of breathing, no retractions or nasal flaring. Abdomen/GI: Soft, with normal bowel sounds. No distension or tympany. No guarding or rebound. No evidence of tenderness throughout. There is a gravid uterus Back: No spinal tenderness. No costovertebral tenderness. Skin: Warm, dry with normal turgor. Normal color with no rashes, no lesions, and no evidence of cellulitis. MS/ Extremity: Pulses equal, no cyanosis. Neurovascular intact. Full, normal range of motion. Neuro: Awake and alert, GCS 15, oriented to person, place, time, and situation. Cranial nerves II-XII grossly intact. Motor strength 5/5 in all extremities. Sensory grossly intact. Psych: Awake, alert, with orientation to person, place and time. Behavior, mood, and affect are within normal limits Vital Signs: 01:20 BP 121 / 81; Pulse 111; Resp 18; Temp 98.6; Pulse Ox 98% on R/A; Pain 4/10; pc2 01:26 BP 121 / 81; Pulse 111; Resp 18; Pulse Ox 98% ; Weight 106.14 kg; Height 5 ft. 7 in. ; pc2 02:49 BP 126 / 85; Pulse 98; Resp 18; Pulse Ox 99% on R/A; pc2 01:26 Body Mass Index 36.65 (106.14 kg, 170.18 cm) pc2 01:20 Pain Scale: Adult pc2 Daisy Coma Score: 02:04 Eye Response: spontaneous(4). Motor Response: obeys commands(6). Verbal Response: sp4 oriented(5). Total: 15. MDM: 01:27 Patient medically screened. sp4 03:09 Differential Diagnosis altered mental status, sepsis, flu, Abdominal contusion . Data sp4 reviewed: vital signs, nurses notes, radiologic studies, ultrasound. ED course: EXAMINATION: US PREGNANCYLIMITED INDICATION: Female, 23 years old, 19 weeks , abdominal injury COMPARISON(S): None. TECHNIQUE: Limited transabdominal ultrasound evaluation of maternal and anatomic structures was performed using grayscale and color Doppler modalities. FINDINGS: UTERUS: Imaged uterine myometrium is normal. Normal appearance of the cervix. No visualized free fluid. Unremarkable appearance of the adnexa; the ovaries are not visualized. : Fetus: Single . Heart rate measures 145 bpm. position is BREECH. Placenta: Position is POSTERIOR. No evidence of previa. Amniotic fluid: Subjectively normal. MELY: BIOMETRY: Humerus length: 2.8 cm, 19 weeks 0 days DATING: Gestational age on US today (AUA): 19 weeks 0 days, with SULAIMAN 12/15/2023. ANATOMY: Visualized structures are within normal limits. IMPRESSION: 1. Single, living, intrauterine fetus in breech position. 2. No evidence of gestational complication. . 07/20 02:01 Order name: OB Limited sp4 Administered Medications: No medications were administered Disposition Summary: 07/21/23 03:07 Discharge Ordered Notes: Location: Home sp4 Problem: new sp4 Symptoms: have improved sp4 Condition: Stable sp4 Diagnosis - Contusion of abdominal wall sp4 - 19 weeks gestation of sp4 Followup: sp4 - With: Private Physician - When: 7 - 10 days - Reason: Recheck today's complaints Discharge Instructions: - Discharge Summary Sheet sp4 - Care sp4 Forms: - Patient Portal Instructions sp4 Signatures: Dispatcher [employer] Kurt Romero MD MD sp4 Martha fernandez, RN RN pc2 Corrections: (The following items were deleted from the chart) 01:56 01:20 Social history: Patient/guardian denies using pc2 pc2
--- NOTE | 2023-07-21 03:08 | ER ---
Nurse's Notes [facility] Name: Nicolasa Mas Age: 23 yrs Sex: Female : 2000 Arrival Date: 07/21/2023 Time: 01:13 Bed 14 Private MD: Diagnosis: Contusion of abdominal wall;19 weeks gestation of Presentation: 07/20 01:20 Chief complaint: Patient states: Pt reports her 2YO toddler body slammed onto her lower pc2 belly while she was asleep. Pt is 19wks . Coronavirus screen: Client denies travel out of the [place] in the last 14 days. At this time, the client does not indicate any symptoms associated with coronavirus-19. Ebola Screen: Patient negative for fever greater than or equal to 101.5 degrees Fahrenheit, and additional compatible Ebola Virus Disease symptoms Patient denies exposure to infectious person. Patient denies travel to an Ebola-affected area in the 21 days before illness onset. No symptoms or risks identified at this time. Initial Sepsis Screen: Does the patient meet any 2 criteria? HR > 90 bpm. Risk Assessment: Do you want to hurt yourself or someone else? Patient reports no desire to harm self or others. Onset of symptoms was July 21, 2023 at 00:00. 01:20 Method Of Arrival: Ambulatory pc2 01:20 Acuity: IAN 3 pc2 01:20 Initial Sepsis Screen: Does the patient have a suspected source of infection? No. pc2 Patient's initial sepsis screen is negative. Triage Assessment: 01:43 General: Appears in no apparent distress. uncomfortable, Behavior is calm, cooperative, pc2 appropriate for age. Pain: Complains of pain in lower abdomen Pain currently is 4 out of 10 on a pain scale. Quality of pain is described as aching, Pain began 2 hours ago. EENT: No signs and/or symptoms were reported regarding the EENT system. Neuro: Level of Consciousness is awake, alert, obeys commands, Oriented to person, place, time, situation, Appropriate for age. Cardiovascular: Patient's skin is warm and dry. Pulses are all present. Rhythm is regular. Respiratory: Airway is patent Respiratory effort is even, unlabored, Respiratory pattern is regular, symmetrical. GI: Abdomen is round gravid SULAIMAN: 12/15/2023. [employer] at [facility]. . : No signs and/or symptoms were reported regarding the genitourinary system. Derm: No signs and/or symptoms reported regarding the dermatologic system. Derm: No signs and/or symptoms reported regarding the dermatologic system. Musculoskeletal: Circulation, motion, and sensation intact. Range of motion: intact in all extremities. 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 - Infectious Disease History:: MRSA (w/in 1 year), . - Social history:: Patient/guardian denies using alcohol, street drugs, IV drugs, Patient/guardian denies using alcohol, street drugs, IV drugs, Smoking status: Patient denies any tobacco usage or history of. - Family history:: not pertinent. Screenin:53 [facility] ED Fall Risk Assessment (Adult) History of falling in the last 3 months, pc2 including since admission No falls in past 3 months (0 pts). Abuse screen: Denies threats or abuse. Denies injuries from another. Nutritional screening: No deficits noted. Nutritional screening: No deficits noted. Tuberculosis screening: No symptoms or risk factors identified. Assessment: 01:25 Reassessment: see triage note. pc2 Vital Signs: 01:20 BP 121 / 81; Pulse 111; Resp 18; Temp 98.6; Pulse Ox 98% on R/A; Pain 4/10; pc2 01:26 BP 121 / 81; Pulse 111; Resp 18; Pulse Ox 98% ; Weight 106.14 kg; Height 5 ft. 7 in. ; pc2 02:49 BP 126 / 85; Pulse 98; Resp 18; Pulse Ox 99% on R/A; pc2 01:26 Body Mass Index 36.65 (106.14 kg, 170.18 cm) pc2 01:20 Pain Scale: Adult pc2 Daisy Coma Score: 02:04 Eye Response: spontaneous(4). Motor Response: obeys commands(6). Verbal Response: sp4 oriented(5). Total: 15. ED Course: 01:15 Patient arrived in ED. gm2 01:20 Arm band placed on. pc2 01:20 Patient has correct armband on for positive identification. Bed in low position. Call pc2 light in reach. Side rails up X2. Adult w/ patient. 01:20 Provided Education on: plan of care. pc2 01:25 Martha fernandez, RN is Primary Nurse. pc2 01:27 Kurt Bruce MD is Attending Physician. sp4 01:41 Triage completed. pc2 02:26 US at bedside. pc2 02:38 US OB Limited In Process Unspecified. EDMS 03:17 No provider procedures requiring assistance completed. pc2 03:17 Patient did not have IV access during this emergency room visit. pc2 Administered Medications: No medications were administered Medication: 01:55 VIS not applicable for this client. pc2 Outcome: 03:07 Discharge ordered by . sp4 03:17 Discharged to home ambulatory, with family, pc2 03:17 Condition: stable 03:17 Discharge instructions given to patient, family, Instructed on discharge instructions, follow up and referral plans. Demonstrated understanding of instructions, follow-up care, 03:18 Patient left the ED. pc2 Signatures: Dispatcher [employer] EDNC Kurt Bruce MD MD sp4 Tamara Pettit gm2 Martha fernandez, RN RN pc2 Corrections: (The following items were deleted from the chart) 01:52 01:43 GI: Abdomen is round gravid pc2 pc2 01:56 01:20 Social history: Patient/guardian denies using pc2 pc2
[2023-07-21 03:37] VITALS: BP 126/85; TEMP 98.6; O2SAT 99
--- NOTE | 2023-07-21 14:43 | RAD REPORT ---
EXAM DESCRIPTION: US - OB Limited - 07/21/2023 2:36 am CLINICAL HISTORY: Female, 23 years old, 19 weeks , abdominal injury COMPARISON: None. TECHNIQUE: Limited transabdominal ultrasound evaluation of maternal and anatomic structures wa s performed using grayscale and color Doppler modalities. FINDINGS: UTERUS: Imaged uterine myometrium is normal. Normal appearance of the cervix. No visualized free fluid. Unrem arkable appearance of the adnexa; the ovaries are not visualized. : Fetus: Single . Heart rate measures 145 bpm. position is BREECH. Placenta: Position is POSTERIOR. No evidence of previa. Amniotic fluid: Subjectively normal. MELY: BIOMETRY: Humerus length: 2.8 cm, 19 weeks 0 days DATING: Gestational age on US today (AUA): 19 weeks 0 days, with SULAIMAN 12/15/2023. ANATOMY: Visualized structures are within normal limits. IMPRESSION: 1. Single, living, intrauterine fetus in breech position. 2. No evidence of gestational complication. Electronically signed by: Hiren Vela MD 07/21/2023 03:00 AM [facility] Due to temporary technical issues with the PACS/Fluency reporting system, reports are being signed by the in house radiologists without review as a courtesy to insure prompt reporting. The interpreting radiologist is fully responsible for the content of the report.
== END 2023-07-21 03:18 | disposition home or self-care (01) ==
LOC: ER 01:13
DX: O9A.212 Injury, poisoning and certain other consequences of external causes complicating pregnancy, second trimester (principal); S30.1XXA Contusion of abdominal wall, initial encounter; Z3A.19 19 weeks gestation of pregnancy
CPT/HCPCS: 76815; 99283